=== PATIENT | female | born 1985 | race Caucasian/White ===

== ENCOUNTER 2016-09-17 13:05 | Emergency (ER) | payer OTHER ==
[~2016-09-17] VITALS: Ht 157.5 cm; Wt 91.1 kg
[~2016-09-17 13:05] MED LIST: ACID REDUCER150 MG PO; ADVAIR 500/501 DISK; ANTIVERT25 MG PO; BUSPAR10 MG PO; CEFTIN500 MG PO; DELTASONE20 MG PO; DEXILANT; DEXILANT60 MG PO; DILAUDID2 MG PO; DOXYCYCLINE HY100 MG PO; FLOVENT 11120 INHALA IH; Flintstones PO; Flovent 110 mcg IH; HYDROCODON-ACE1 EAC7 PO; MIRALAX255 GM PO; MOTRIN800 MG PO; NAPROSYN500 MG PO; NICOTINE PATCH1 EACH TD; PREDNISONE20 MG PO; PROAIR HFA8.5 GM IH; TUSSIN DM LIQU118 ML PO; Tamiflu PO; ULTRAM50 MG PO; VENTOLIN HFA18 GM IH; XOPENEX HFA15 GM; Xopenex HFA Inhaler IH; ZOFRAN4 MG PO
[2016-09-17 13:32] LABS: HEMATOCRIT 45.1 % (36.0-46.0); MCH 29.6 PG (29.0-34.0); MCHC 33.7 G/DL (30.0-36.0); MCV 87.9 FL (83-99); MEAN PLAT.VOLUME 11.4 uM^3 (9.5-12.4); PLATELET COUNT 303 K/uL (156-360); RBC DIS.WIDTH-CV 12.7 % (11.8-14.6); RED BLOOD COUNT 5.13 M/uL (3.80-5.20); WHITE BLOOD COUNT 16.8 K/uL (4.1-10.2)
[2016-09-17 13:49] LABS: CHLORIDE 99 mEq/L (99-109); POTASSIUM 3.7 mEq/L (3.7-5.4); SODIUM 140 mEq/L (136-147)
[2016-09-17 13:51] LABS: GLUCOSE 107 mg/dL (70-99)
[2016-09-17 13:53] LABS: ANION GAP 14 MEQ/L (2-14); TOTAL BILIRUBIN 0.3 mg/dL (0.0-1.0)
[2016-09-17 13:55] LABS: ALKALINE PHOSPHATASE 80 IU/L (3-129); GFR ESTIMATE (CALCULATED) > 59 mL/min/
[2016-09-17 13:56] LABS: UREA NITROGEN (BUN) 10 mg/dL (9-23)
[2016-09-17 13:58] LABS: LIPASE 12 U/L (1.0-51.0)
[2016-09-17 14:05] LABS: QUANTITATIVE HCG < 4.0 MIU/ML
[2016-09-17 16:40] LABS: ADD MIUA? YES; BILIRUBIN NEGATIVE; BLOOD NEGATIVE; COLOR YELLOW ((YELLOW)); GLUCOSE (STRIP) NEGATIVE; KETONES NEGATIVE; LEUKOCYTES NEGATIVE; NITRITE NEGATIVE; PROTEIN (STRIP) NEGATIVE; SPECIFIC GRAVITY 1.016 (1.000-1.030); UROBILINOGEN 0.2 MG/DL (0.2-1.0)
[2016-09-17 16:43] LABS: BACTERIA 1+ /HPF; EPITHELIAL CELLS 2+ /HPF; MUCUS 1+ /LPF; RED BLOOD CELLS NONE SEEN /HPF (0-5); UCUL ADDED? NO; WHITE BLOOD CELLS 0-5 /HPF (0-5)
[2016-09-17] MEDS ORDERED: BENTYL20 MG PO (16:58)
[2016-09-17] MEDS ORDERED: CARAFATE1 GM PO (16:58)
[2016-09-17] MEDS ORDERED: ZOFRAN ODT4 MG PO (16:58)
[2016-09-17 17:48] VITALS: BP 122/67
== END 2016-09-17 17:49 | disposition home or self-care (01) ==
LOC: EME 13:05
DX: K29.70 Gastritis, unspecified, without bleeding (principal); D72.829 Elevated white blood cell count, unspecified; K21.9 Gastro-esophageal reflux disease without esophagitis; J45.909 Unspecified asthma, uncomplicated; F17.200 Nicotine dependence, unspecified, uncomplicated
CPT/HCPCS: 74176; 80053; 81003; 83690; 84702; 85027; 99281; 99284; J1885; J2270; J2405; J7040